=== PATIENT | female | born 1990 | race African-American/Black ===

== ENCOUNTER 2016-12-05 21:05 | Emergency (ER) | payer OTHER ==
[~2016-12-05] VITALS: Ht 167.6 cm; Wt 81.7 kg
[~2016-12-05 21:05] MED LIST: AMOXICILLIN 50500 M1 PO; AMOXICILLIN875 MG PO; AUGMENTIN 875875 MG PO; BACTRIM DS TAB1 EACH PO; CITRATE OF MAG296 ML PO; COLACE100 MG PO; DIFLUCAN150 MG PO; FLAGYL500 MG PO; FLEXERIL PO; HYDROCODONE-APA10 ML PO; HYDROXYZINE HCL25 M1 PO; IBUPROFEN 600600 M1 PO; IBUPROFEN 800800 MG PO; LIDOCAINE 22 %/30 GM TOP; LOTRIMIN30 GM TP; MACROBID 100 M100 M1 PO; MONISTAT SOOTHI42 GM TP; NAPROSYN500 MG PO; NOHOMEMEDICATIONS; NORCO 5-325 TA1 EACH PO; SINGULAIR 10 MG10 M1 PO; TRAMADOL 50 MG50 MG PO; VENTOLIN HFA 1818 GM INH
[2016-12-05 21:35] LABS: URINE BILIRUBIN NEGATIVE (Negative); URINE BLOOD NEGATIVE (Negative); URINE COLOR YELLOW; URINE GLUCOSE-RANDOM* NEGATIVE (Negative); URINE KETONES NEGATIVE (Negative); URINE NITRITE NEGATIVE (Negative); URINE PROTEIN (DIPSTICK) NEGATIVE (Negative); URINE UROBILINOGEN 0.2 E.U./dl (0.2-1.0)
[2016-12-05 22:32] VITALS: BP 112/69
[2016-12-09 05:43] LABS: CHLAMYDIA TRACHOMATIS-PCR Negative (Negative); NEISSERIA GONORRHEA-PCR Negative (Negative)
== END 2016-12-05 22:32 | disposition home or self-care (01) ==
LOC: ER 21:05
PROVIDERS: Nurse Practitioner Family
DX: R10.2 Pelvic and perineal pain (principal); J45.909 Unspecified asthma, uncomplicated

== ENCOUNTER 2016-12-20 09:27 | Emergency (ER) | payer OTHER | END 2016-12-20 10:51 | disposition home or self-care (01) | LOC: ER 09:27 | DX: N89.8 Other specified noninflammatory disorders of vagina (principal); R10.2 Pelvic and perineal pain; J45.909 Unspecified asthma, uncomplicated ==

== ENCOUNTER 2017-03-18 14:18 | Emergency (ER) | payer OTHER ==
[~2017-03-18] VITALS: Ht 167.6 cm; Wt 86.2 kg
[2017-03-18 14:19] VITALS: BP 114/71
== END 2017-03-18 15:08 | disposition home or self-care (01) ==
LOC: ER 14:18
DX: L25.9 Unspecified contact dermatitis, unspecified cause (principal); J45.909 Unspecified asthma, uncomplicated; F10.99 Alcohol use, unspecified with unspecified alcohol-induced disorder

== ENCOUNTER 2017-03-30 08:51 | Emergency (ER) | payer OTHER ==
[~2017-03-30] VITALS: Ht 167.6 cm; Wt 81.7 kg
[2017-03-30 08:52] VITALS: BP 119/78
[2017-03-30 09:12] LABS: URINE BILIRUBIN NEGATIVE (Negative); URINE BLOOD NEGATIVE (Negative); URINE COLOR YELLOW; URINE GLUCOSE-RANDOM* NEGATIVE (Negative); URINE KETONES NEGATIVE (Negative); URINE NITRITE NEGATIVE (Negative); URINE PROTEIN (DIPSTICK) NEGATIVE (Negative); URINE UROBILINOGEN 0.2 E.U./dl (0.2-1.0)
[2017-03-30] MEDS ORDERED: FLAGYL500 MG PO (09:53)
[2017-03-31 23:10] LABS: CHLAMYDIA TRACHOMATIS-PCR Negative (Negative); NEISSERIA GONORRHEA-PCR Negative (Negative)
== END 2017-03-30 09:58 | disposition home or self-care (01) ==
LOC: ER 08:51
PROVIDERS: Physician Assistant
DX: N89.8 Other specified noninflammatory disorders of vagina (principal); J45.909 Unspecified asthma, uncomplicated; F10.99 Alcohol use, unspecified with unspecified alcohol-induced disorder

== ENCOUNTER 2017-05-27 14:21 | Emergency (ER) | payer OTHER ==
[~2017-05-27] VITALS: Ht 167.6 cm; Wt 81.7 kg
[2017-05-27] MEDS ORDERED: VITAFOL-OB+DHA1 EACH PO (14:45)
[2017-05-27 15:11] LABS: ABSOLUTE NEUTROPHILS 2.9 thou/uL (1.4-8.2); BASOPHILS 0.5 % (0.0-2.0); EOSINOPHILS 0.4 % (0.0-3.0); HEMATOCRIT 30.7 % (37.0-47.0); HEMOGLOBIN 9.9 gm/dL (12.0-15.0); LYMPHOCYTES 25.3 % (24.0-44.0); MCH 25.7 pg (26.0-34.0); MCHC 32.3 g/dL (28.0-37.0); MCV 79.8 fL (80.0-100.0); MONOCYTES 9.5 % (1.0-8.0); PLATELET COUNT 297 thou/uL (150-400); POLYS 64.3 % (36.0-66.0); RBC 3.85 mil/uL (4.20-5.00); RDW 18.9 % (10.5-14.5); WBC 4.5 thou/uL (4.0-11.0)
[2017-05-27 15:17] LABS: CALCIUM 8.8 mg/dL (8.5-10.1); CREATININE 0.7 mg/dL (0.6-1.0); POTASSIUM 3.8 mmol/L (3.5-5.1)
[2017-05-27 15:22] LABS: URINE BILIRUBIN NEGATIVE (Negative); URINE BLOOD NEGATIVE (Negative); URINE CLARITY CLEAR; URINE COLOR YELLOW; URINE GLUCOSE-RANDOM* NEGATIVE (Negative); URINE KETONES NEGATIVE (Negative); URINE LEUKOCYTES-REFLEX NEGATIVE (Negative); URINE NITRITE-REFLEX NEGATIVE (Negative); URINE PROTEIN (DIPSTICK) NEGATIVE (Negative); URINE SPECIFIC GRAVITY <= 1.005 (1.005-1.035); URINE UROBILINOGEN 0.2 E.U./dl (0.2-1.0)
[2017-05-27] MEDS ORDERED: REGLAN 10 MG TA10 MG PO (15:38)
== END 2017-05-27 16:17 | disposition home or self-care (01) ==
LOC: ER 14:21
PROVIDERS: Emergency Medicine
DX: O21.9 Vomiting of pregnancy, unspecified (principal); J45.909 Unspecified asthma, uncomplicated; Z3A.08 8 weeks gestation of pregnancy

== ENCOUNTER 2017-07-11 12:34 | Emergency (ER) | payer OTHER ==
[~2017-07-11] VITALS: Ht 167.6 cm; Wt 78.5 kg
[~2017-07-11 12:34] MED LIST changes: +REGLAN 10 MG TA10 MG PO; +VITAFOL-OB+DHA1 EACH PO
[2017-07-11] MEDS ORDERED: BENADRYL25 MG PO (13:02)
[2017-07-11] MEDS ORDERED: PEPCID20 MG PO (13:02)
[2017-07-11] MEDS ORDERED: PREDNISONE 20 M20 M1 PO (13:02)
== END 2017-07-11 13:51 | disposition home or self-care (01) ==
LOC: ER 12:34
DX: L23.9 Allergic contact dermatitis, unspecified cause (principal); J45.909 Unspecified asthma, uncomplicated

== ENCOUNTER 2018-11-17 20:48 | Emergency (ER) | payer OTHER ==
[~2018-11-17] VITALS: Ht 167.6 cm; Wt 85.3 kg
[~2018-11-17 20:48] MED LIST changes: +BENADRYL25 MG PO; +PEPCID20 MG PO; +PREDNISONE 20 M20 M1 PO
[2018-11-17] MEDS ORDERED: TOPAMAX 25 MG T25 M1 PO (21:08)
[2018-11-17 21:09] LABS: URINE BILIRUBIN NEGATIVE (Negative); URINE BLOOD 3+ (Negative); URINE CLARITY SL CLOUDY; URINE COLOR YELLOW; URINE GLUCOSE-RANDOM* NEGATIVE (Negative); URINE KETONES NEGATIVE (Negative); URINE LEUKOCYTES-REFLEX TRACE (Negative); URINE PROTEIN (DIPSTICK) TRACE (Negative); URINE UROBILINOGEN 0.2 E.U./dl (0.2-1.0)
[2018-11-17] MEDS ORDERED: IMITREX 25 MG T25 M1 PO (21:09)
[2018-11-17 21:21] LABS: URINE NITRITE-REFLEX POSITIVE (Negative)
[2018-11-17 21:23] LABS: BACTERIA-REFLEX >30 Many /HPF (None Seen); CASTS None Seen /LPF (None Seen); CRYSTALS None Seen /LPF (None Seen); MUCUS >6 Heavy strn/LPF (None Seen); SQUAMOUS 0-3 Few /LPF (0-3); URINE WBC-REFLEX 6-15 Few /HPF (0-5)
[2018-11-17] MEDS ORDERED: KEFLEX500 M1 PO (21:28)
[2018-11-17 22:06] VITALS: BP 105/58
== END 2018-11-17 22:08 | disposition home or self-care (01) ==
LOC: ER 20:48
PROVIDERS: Physician Assistant
DX: N39.0 Urinary tract infection, site not specified (principal); R50.9 Fever, unspecified; J45.909 Unspecified asthma, uncomplicated; Z79.899 Other long term (current) drug therapy

== ENCOUNTER 2019-05-30 09:46 | Emergency (ER) | payer OTHER ==
[~2019-05-30] VITALS: Ht 170.2 cm; Wt 86.2 kg
[~2019-05-30 09:46] MED LIST changes: +IMITREX 25 MG T25 M1 PO; +KEFLEX500 M1 PO; +TOPAMAX 25 MG T25 M1 PO
[2019-05-30 11:35] VITALS: BP 126/81
== END 2019-05-30 11:39 | disposition home or self-care (01) ==
LOC: ER 09:46
DX: S09.90XA Unspecified injury of head, initial encounter (principal); J45.909 Unspecified asthma, uncomplicated; V89.0XXA Person injured in unspecified motor-vehicle accident, nontraffic, initial encounter; Y93.89 Activity, other specified; Y92.89 Other specified places as the place of occurrence of the external cause; Y99.8 Other external cause status

== ENCOUNTER 2019-08-27 22:49 | Emergency (ER) | payer BC ==
[~2019-08-27] VITALS: Ht 167.6 cm; Wt 90.7 kg
[2019-08-27 23:56] LABS: URINE BILIRUBIN NEGATIVE (Negative); URINE BLOOD NEGATIVE (Negative); URINE CLARITY CLOUDY; URINE COLOR YELLOW; URINE GLUCOSE-RANDOM* NEGATIVE (Negative); URINE KETONES NEGATIVE (Negative); URINE LEUKOCYTES-REFLEX NEGATIVE (Negative); URINE NITRITE-REFLEX NEGATIVE (Negative); URINE PROTEIN (DIPSTICK) NEGATIVE (Negative); URINE UROBILINOGEN 0.2 E.U./dl (0.2-1.0)
[2019-08-28 00:34] VITALS: BP 116/73
== END 2019-08-28 00:45 | disposition home or self-care (01) ==
LOC: ER 22:49
PROVIDERS: Emergency Medicine
DX: N89.8 Other specified noninflammatory disorders of vagina (principal); M54.9 Dorsalgia, unspecified; J45.909 Unspecified asthma, uncomplicated